=== PATIENT | female | born 1990 | race Caucasian/White ===

== ENCOUNTER 2016-09-25 19:52 | Emergency (ER) | payer OTHER ==
[~2016-09-25 19:52] MED LIST: ATIVAN0.5 M1 PO; AUGMENTIN 875-1 EACH PO; COMBIVENT RESPIM4 GM PO; MUCINEX600 M1 PO; PROVENTIL HFA6.7 GM INH
[2016-09-25] MEDS ORDERED: BACLOFEN10 M1 PO (21:07)
[2016-09-25] MEDS ORDERED: ZOFRAN ODT4 M1 SL (21:07)
[2016-09-25] MEDS ORDERED: IBUPROFEN600 M1 PO (21:07)
--- NOTE | 2016-09-25 21:08 | ED GENERAL ADULT ---
History of Present Illness General Chief Complaint: Low Back Pain/Injury Stated Complaint: PT THINK SHE THREW OUT HER BACK Source: patient, old records Exam Limitations: no limitations Vital Signs & Intake/Output Vital Signs & Intake/Output Vital Signs Date Time Temp Pulse Resp B/P Pulse O2 O2 Flow FiO2 Ox Delivery Rate 09/25 2125 98.2 80 19 128/66 99 Room Air 09/25 2000 120 22 134/78 98 Allergies Coded Allergies: nut - unspecified (Severe, ANAPHYLAXIS 05/15/16) cephalexin (Intermediate, HIVES 05/15/16) shellfish derived (TESTED + IN ALLERGY TESTING 05/15/16) Reconcile Medications Albuterol Sulfate (Proventil Hfa) 6.7 GM HFA.AER.AD 2 PUF INH Q4 BREATHING BROBLEMS (Reported) Amoxicillin/Potassium Clav (Augmentin 875-125 Tablet) 1 EACH TABLET 1 TAB PO BID ANTIBIOTIC, INFECTION (Reported) Baclofen 10 MG TABLET 1 TAB PO TIDPRN PRN muscle spasm/strain Guaifenesin (Mucinex) 600 MG TAB.ER.12H 1 TAB PO BID COLD (Reported) Ibuprofen 600 MG TABLET 1 TAB PO Q6PRN PRN pain with food Ipratropium/Albuterol Sulfate (Combivent Respimat Inhal [place]) 4 GM MIST.INHAL 1 PUFF PO Q4 BREATHING PROBLEMS (Reported) Lorazepam (Ativan) 0.5 MG TABLET 1 TAB PO TID PRN anxiety Ondansetron (Zofran Odt) 4 MG TAB.RAPDIS 1 TAB SL TID PRN nausea Triage Note: PER PT VOMITING ALL DAY TODAY THINK I THREW OUT MY BACK VOMITING NO DIARRHEA, UNABLE TO TAKE OTC FOR PAIN BECAUSE I CANT EVEN KEEP DOWN WATER. LMP 3 WEEKS AGO Triage Nurses Notes Reviewed? yes Onset: Morning Duration: hour(s):, constant, continues in ED Timing: recent history Injury Environment: home Severity: mild, moderate Modifying Factors: Improves With: rest. Worsens With: movement. Associated Symptoms: back pain LMP (ages 10-50): unknown : No Patient currently breastfeeds: Yes HPI: Several hours prior to admission patient complains of nausea vomiting and developed mild to moderate low back pain worse with movement turning bending. She denies fever chills chest pain cough shortness of breath headache dysuria rash bleeding change in motor sensory function change in bowel bladder habit. Past History Travel History Traveled to [place] past 21 day No Medical History Any Pertinent Medical History? 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 No Review of Systems Review of Systems Constitutional: Reports: no symptoms. EENTM: Reports: no symptoms. Respiratory: Reports: no symptoms. Cardiovascular: Reports: no symptoms. GI: Reports: see HPI, nausea, vomiting. Genitourinary: Reports: no symptoms. Musculoskeletal: Reports: see HPI, back pain, muscle pain, muscle stiffness. Skin: Reports: no symptoms. Neurological/Psychological: Reports: no symptoms. Hematologic/Endocrine: Reports: no symptoms. Immunologic/Allergic: Reports: no symptoms. All Other Systems: Reviewed and Negative Physical Exam Physical Exam General Appearance: well developed/nourished, alert, awake, anxious, mild distress Head: atraumatic, normal appearance Eyes: Bilateral: normal appearance, PERRL, EOMI. Ears, Nose, Throat: normal pharynx, normal ENT inspection Neck: normal inspection, supple, full range of motion, no midline tenderness Respiratory: normal breath sounds, chest non-tender, no respiratory distress, quiet respiration, lungs clear Cardiovascular: regular rate/rhythm, normal peripheral pulses, norml femoral pulses equa Peripheral Pulses: 4+ carotid (R), 4+ carotid (L), 2+ radial (R), 2+ radial (L) Gastrointestinal: normal bowel sounds, soft, non-tender, no organomegaly Back: normal inspection, normal range of motion, muscle spasm, no vertebral tenderness Extremities: normal inspection, normal capillary refill, normal range of motion, no edema Neurologic/Psych: no motor/sensory deficits, awake, alert, oriented x 3, normal gait, normal mood/affect, rib stiffener and heel dipper II-XII nml as tested Reflexes: 2+: bicep (R), bicep (L). Skin: intact, normal color, warm/dry Lymphatic: no anterior cervical abraham Core Measures ACS in differential dx? No CVA/TIA Diagnosis: No Severe Sepsis Present: No Septic Shock Present: No Progress Differential Diagnoses I considered the following diagnoses in my evaluation of the patient: Gastroenteritis musculoskeletal back pain Plan of Care: Current Medications Sig/Joss Start time Last Medication Dose Stop Time Status Admin Cyclobenzaprine HCl 10 MG ONCE ONE 09/25 2114 UNVr (Flexeril 10MG Tab) 09/25 2115 Ibuprofen 600 MG ONCE ONE 09/25 2114 UNVr (Motrin) 09/25 2115 Initial ED EKG: none Departure Departure Time of Disposition: 2105 Disposition: HOME OR SELF CARE Condition: Stable Clinical Impression Primary Impression: Nausea and vomiting in adult Secondary Impressions: Musculoskeletal strain Referrals: PATIENT HAS NO PRIMARY CARE DR (PCP/Family) Departure Forms: Customer Survey General Discharge Information Prescriptions: Current Visit Scripts Baclofen 1 TAB PO TIDPRN PRN muscle spasm/strain #30 TAB Ibuprofen 1 TAB PO Q6PRN PRN pain #50 TAB with food Ondansetron (Zofran Odt) 1 TAB SL TID PRN nausea #15 TAB Critical Care Note Critical Care Note Critical Care Time: non-applicable
[2016-09-25 21:26] VITALS: BP 128/66
== END 2016-09-25 21:40 ==
LOC: ERH 19:52
DX: S39.012A Strain of muscle, fascia and tendon of lower back, initial encounter (principal); R11.2 Nausea with vomiting, unspecified; X58.XXXA Exposure to other specified factors, initial encounter
CPT/HCPCS: J3101

== ENCOUNTER 2018-03-31 18:38 | Emergency (ER) | payer OTHER ==
[~2018-03-31 18:38] MED LIST changes: +ALBUTEROL1.25 MG/1 INH/SOL; +BACLOFEN10 M1 PO; +FERROUSUL325 MG PO; +IBUPROFEN600 M1 PO; +MECLIZINE HCL25 MG PO; +PREDNISONE10 M2 PO; +PREDNISONE20 M1 PO; +PROAIR HFA8.5 GM INH; +ST. JOHN'S WOR150 M1 PO; +VITAMIN B-121000 MC3 PO; +ZOFRAN ODT4 M1 SL
--- NOTE | 2018-03-31 20:44 | ED PSYCHIATRIC COMPLAINT ---
History of Present Illness General Chief Complaint: General Adult Stated Complaint: PSYCH EVAL Source: patient, family, old records Exam Limitations: no limitations Vital Signs & Intake/Output Vital Signs & Intake/Output Vital Signs Date Time Temp Pulse Resp B/P B/P Pulse O2 O2 Flow FiO2 Mean Ox Delivery Rate 03/31 2241 98.7 79 18 134/88 100 03/31 1901 99.1 84 19 136/92 94 Allergies Coded Allergies: nut - unspecified (Severe, ANAPHYLAXIS 05/15/16) cephalexin (Intermediate, HIVES 05/15/16) shellfish derived (TESTED + IN ALLERGY TESTING 05/15/16) Reconcile Medications Albuterol Sulfate 1.25 MG/3 ML VIAL.NEB 1 Vial INH/LEYDA Q4-6 PRN WHEEZING/SOB (Reported) Albuterol Sulfate (Proair Hfa) 90 MCG HFA.AER.AD 2 PUF INH Q4-6 PRN PRN wheezing Cyanocobalamin (Vitamin B-12) (Unknown Strength) TABLET (Unknown Dose) PO DAILY SUPPLEMENT (Reported) Ferrous Sulfate (Ferrousul) 325 MG (65 MG IRON) TABLET 1 TAB PO DAILY SUPPLEMENT (Reported) Lactobacillus Acidophilus (Probiotic) 10 BILLION CELL CAPSULE 1 CAP PO DAILY PROBIOTIC (Reported) Triage Note: PT TO ED WITH C/O INCREASING ANXIETY. STATES HAS OUT PATIENT APPT WITH PSYCHIATRIST IN 3 WEEKS, BUT CANNOT WAIT THAT LONG. DENIES SI/HI, AH/VH. Triage Nurses Notes Reviewed? yes Onset: several weeks Duration: week(s):, changing over time, continues in ED, getting worse Timing: recent history Severity: moderate, severe Associated Symptoms: anxiety, impaired concentration LMP (ages 10-50): unknown : No Patient currently breastfeeds: No HPI: Patient reports being treated for anxiety without current medications. Over the last month she was treated for Lyme disease with doxycycline for 3 weeks and became very depressed. She completed the medications 2 weeks prior to admission with improvement of depression with increased anxiety. She also complains of anorexia fear of crowded places anhedonia. She has an appointment with psychiatrist medications and 3 weeks but feels she cannot wait. She denies fever chills nausea vomiting diarrhea abdominal pain chest pain shortness breath headache dysuria rash bleeding suicidal ideation homicidal ideation hallucination. Past History Travel History Traveled to [place] past 21 day No Medical History Any Pertinent Medical History? 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 No Review of Systems Review of Systems Constitutional: Reports: no symptoms. EENTM: Reports: no symptoms. Respiratory: Reports: no symptoms. Cardiovascular: Reports: no symptoms. GI: Reports: no symptoms. Genitourinary: Reports: no symptoms. Musculoskeletal: Reports: no symptoms. Skin: Reports: no symptoms. Neurological/Psychological: Reports: see HPI, anxiety, confusion, emotional problems. Hematologic/Endocrine: Reports: no symptoms. Immunologic/Allergic: Reports: no symptoms. All Other Systems: Reviewed and Negative Physical Exam Physical Exam General Appearance: well developed/nourished, mild distress Head: atraumatic, normal appearance Eyes: Bilateral: normal appearance, PERRL, EOMI. 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 patient not suicidal Progress Differential Diagnosis: drug intoxication, drug overdose, drug withdrawal, electrolyte abnormality, hypoglycemia Plan of Care: Orders Procedure Date/time Status TOTAL TRIODOTHYROXINE 03/31 2106 Complete FREE T4 03/31 2106 Complete URINE 03/31 2043 Complete URINE DRUG SCREEN FOR ER ONLY 03/31 2043 Complete TSH REFLEX 03/31 2043 Complete COMPREHENSIVE METABOLIC PANEL 03/31 2043 Complete CBC WITHOUT DIFFERENTIAL 03/31 2043 Complete ED CRISIS PSYCH CONSULT 03/31 2043 Active Laboratory Tests 03/31/182105: Anion Gap 15, Estimated GFR > 60, BUN/Creatinine Ratio 12.0, Glucose 82, Calcium 9.8, Total Bilirubin 0.4, AST 22, ALT 31, Alkaline Phosphatase 46, Total Protein 8.1, Albumin 4.8, Globulin 3.3, Albumin/Globulin Ratio 1.5, Free T4 1.03, Total T3 1.64, TSH &T3 &Free T4 Intrp 5.030 H, CBC w Diff NO MAN DIFF REQ, RBC 4.79, MCV 89.3, MCH 30.1, MCHC 33.7, RDW 13.1, MPV 10.9 H, Gran % 45.6, Lymphocytes % 41.0, Monocytes % 7.7, Eosinophils % 5.1 H, Basophils % 0.6, Absolute Granulocytes 4.0, Absolute Lymphocytes 3.6 H, Absolute Monocytes 0.7 H, Absolute Eosinophils 0.4, Absolute Basophils 0.1 03/31/182054: Urine Opiates Screen < 100, Methadone Screen < 40, Barbiturate Screen < 60, Ur Phencyclidine Scrn < 6.00, Amphetamines Screen < 100, U Benzodiazepines Scrn < 85, Urine Cocaine Screen < 50, Urine Cannabis Screen 76.50 H, Urine Test NEGATIVE Departure Departure Time of Disposition: 2317 Disposition: HOME OR SELF CARE Condition: Stable Clinical Impression Primary Impression: Anxiety with depression Referrals: Patient Has No Primary Care Dr (PCP/Family) Additional Instructions: Follow up as scheduled with your psychiatrist. Departure Forms: Customer Survey General Discharge Information RELEASE- WORK Prescriptions: Current Visit Scripts Citalopram Hydrobromide (Citalopram HBr) 1 TAB PO DAILY #30 TAB Hydroxyzine Hydrochloride (Atarax) 1-2 TAB PO Q6H PRN anxiety #60 TAB
[2018-03-31] MEDS ORDERED: PROBIOTIC1 EACH PO (21:03)
[2018-03-31 21:17] LABS: ABSOLUTE BASOPHIL COUNT 0.1 /CUMM (0.0-0.2); ABSOLUTE EOSINOPHIL COUNT 0.4 /CUMM (0.0-0.7); ABSOLUTE LYMPH COUNT 3.6 /CUMM (1.2-3.4); ABSOLUTE MONOCYTE COUNT 0.7 /CUMM (0.10-0.60); BASOPHIL % 0.6 % (0.0-2.0); EOSINOPHIL % 5.1 % (0-5); GRANULOCYTE % 45.6 % (42.2-75.2); HEMATOCRIT 42.7 % (37-47); MEAN CORPUSCULAR HGB 30.1 PG (27.0-31.0); MEAN CORPUSCULAR HGB CONC 33.7 G/DL (33.0-37.0); MEAN CORPUSCULAR VOLUME 89.3 FL (81.0-99.0); MEAN PLATELET VOLUME 10.9 FL (7.4-10.4); PLATELET COUNT 244 /CUMM (130-400); RBC DISTRIBUTION WIDTH 13.1 % (11.5-14.5); RED BLOOD CELL CT 4.79 /CUMM (4.20-5.40); WHITE BLOOD CELL COUNT 8.7 /CUMM (4.8-10.8)
[2018-03-31] MEDS ORDERED: CITALOPRAM HBR10 MG PO (23:21)
[2018-03-31] MEDS ORDERED: HYDROXYZINE HCL25 M2 PO (23:21)
[2018-03-31 23:32] VITALS: BP 113/86
== END 2018-03-31 23:39 ==
LOC: ERH 18:38
PROVIDERS: Emergency Medicine
DX: F41.9 Anxiety disorder, unspecified (principal); F32.9 Major depressive disorder, single episode, unspecified
CPT/HCPCS: 80307; 81025